=== PATIENT | female | born 1970 | race Caucasian/White ===

== ENCOUNTER → 2016-11-12 | Outpatient (CLI) | payer BC, OTHER ==
--- NOTE | 2016-11-12 12:08 | WWHP ---
[facility] - HISTORY AND PHYSICAL DATE OF SERVICE: 11/12/2016 CHIEF COMPLAINT: The patient is here for her routine gynecologic exam and mammogram. HPI: This is a 46-year-old, G3, P3 with an LMP of 11/05/2016. Her is status post vasectomy. She states her periods have gotten more consistently heavy. Periods are still regular every month. They are lasting 7 to 10 days with 4 days of very heavy flow. On the very heavy days, she has to change her protection up to every 20 minutes. Occasionally, she has found herself having to push out the blood and clots. She does not have any significant problems with cramping or pain with the periods. Her LMP was more normal but the periods prior to that were consistently heavy and long. She did not try the meclofenamate sodium which was prescribed to her in 2015. PAST MEDICAL HISTORY: Migraine headaches. MEDICATIONS: None. ALLERGIES: No known drug allergies. PAST SURGICAL HISTORY: section in the past. 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 She has no history of STDs. SOCIAL HISTORY: She denies tobacco and drug use and has 0 to 1 alcoholic drink per week. 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 FAMILY HISTORY: Unchanged from the 2015 H&P. REVIEW OF SYSTEMS: She has gained about 11 pounds over the last 2 years. She denies respiratory, cardiac or GI problems. PHYSICAL EXAM: Blood pressure 133/72, height 5 feet 2 inches, weight 157 pounds, temperature 98.7, pulse 65. This is a well-developed, well-nourished, white female, who is alert and oriented x3, in no acute distress. HEENT is within normal limits. NECK: Supple without mass or thyromegaly. CHEST AND LUNGS: Clear to auscultation. HEART: Regular rate and rhythm. Breasts are without mass or discharge. Axillary exam is negative for adenopathy. BACK: Negative for CVA tenderness. ABDOMEN: There is a small abdominal wall hernia approximately 5 cm superior to the umbilicus. She states she has had this hernia in the abdominal wall since her last . It does bulge slightly with Valsalva and measures approximately 3 x 4 cm. There is no notable finding without Valsalva. There is no erythema and this is nontender. There are no other palpable abdominal masses or tenderness. PELVIC EXAM: Normal external genitalia. Cervix and vagina appear normal. There is a scant amount of old blood in the back of the vagina with no unusual discharge. There is no cervical motion tenderness. There is no evidence of prolapse. The uterus is mid position, nongravid size and nontender. There are no palpable adnexal masses or tenderness. Rectal exam is negative for mass or tenderness and is negative for occult blood. EXTREMITIES: Nontender. IMPRESSION: 1. A 46-year-old female, whose is status post vasectomy with normal gynecologic exam. 2. Worsening menorrhagia. 3. Asymptomatic small abdominal wall hernia. PLAN: 1. Pap smear was performed. 2. Self breast examination was discussed. 3. Mammogram will be done today. 4. Pelvic ultrasound will be scheduled. 5. Lab studies will include CBC, comprehensive Chem panel, and cholesterol. 6. We have discussed her umbilical wall hernia and at this time I believe conservative management is adequate. We have discussed negative Valsalva exercises if she is noticing a bulge at certain times. 7. Trial of meclofenamate sodium 100 mg t.i.d. p.r.n. for heavy menstrual flow up to 6 days per cycle. She will keep a menstrual calendar. If she is not noticing significant improvement within 3 months, she will call and we will consider referral for endometrial ablation. 8. She will return in 1 year. MMPARKERL / LUARIEN: [id number] /
[2016-11-12 12:32] LABS: ALT 50 U/L (9-52); AST 36 U/L (14-36); Alkaline Phosphatase 63 U/L (38-126); Anion Gap 9 mmol/L; Blood Urea Nitrogen 14 mg/dL (7-17); Calcium 9.1 mg/dL (8.4-10.2); Carbon Dioxide 24 mmol/L (22-30); Chloride 108 mmol/L (98-107); Cholesterol 222 mg/dL (<200); Glucose 81 mg/dL (74-99); Non-African American GFR(MDRD) >60 (>60 ml/min/1.73 sqM); Potassium 4.4 mmol/L (3.5-5.1); Sodium 141 mmol/L (137-145); Total Bilirubin 0.3 mg/dL (0.2-1.3); Total Protein 7.5 g/dL (6.3-8.2)
[2016-11-12 12:36] LABS: CH 30.7; CHCM 35.2; HCT 38.4 % (34.0-46.0); HDW 2.59; HGB 13.1 gm/dL (11.4-16.0); MCH 29.9 pg (25.0-35.0); MCHC 34.1 g/dL (31.0-37.0); MCV 87.6 fL (80.0-100.0); Mean Platelet Volume 7.5; RBC 4.38 m/uL (3.80-5.40); RDW 13.9 % (11.5-15.5); WBC 5.9 k/uL (3.8-10.6)
--- NOTE | 2016-11-14 07:05 | MM ---
Reason for exam: screening (asymptomatic). Last mammogram was performed 2 years and 8 months ago. History: Family history of breast cancer in grandmother. Physical Findings: A clinical breast exam by your physician is recommended on an annual basis and results should be correlated with mammographic findings. MG Screening Mammo w CAD Bilateral CC and MLO view(s) were taken. Prior study comparison: March 22, 2014, bilateral MG screening mammo w CAD. July 02, 2007, bilateral digital screening mammogram. The breast tissue is heterogeneously dense. This may lower the sensitivity of mammography. There is no discrete abnormality. ASSESSMENT: Negative, BI-RAD 1 RECOMMENDATION: Routine screening mammogram of both breasts in 1 year.
== END ==
LOC: WWCWWP 10:22
PROVIDERS: ATTEND Obstetrics & Gynecology
DX: Z12.31 Encounter for screening mammogram for malignant neoplasm of breast (principal); N92.0 Excessive and frequent menstruation with regular cycle; Z00.00 Encounter for general adult medical examination without abnormal findings
CPT/HCPCS: 80053; 82465; 85027; G0202

== ENCOUNTER → 2016-11-21 | Outpatient (CLI) | payer BC ==
--- NOTE | 2016-11-21 09:23 | US ---
EXAMINATION TYPE: US pelvis complete transvag DATE OF EXAM: 11/21/2016 COMPARISON: NONE CLINICAL HISTORY: N92.0 Menorrhagia. TECHNIQUE: Transvaginal (TV) and Transabdominal (TA) Date of LMP: 11/05/2016 EXAM MEASUREMENTS: Uterus: 10.7 x 4.2 x 4.5 cm Endometrial Stripe: 1.3 cm Right Ovary: 2.0 x 1.4 x 2.6 cm Left Ovary: 1.5 x 1.4 x 1.6 cm 1. Uterus: Anteverted Enlarged and heterogeneous. Hypoechoic area visualized measuring 2.3 x 1.5 x 1.9 cm, possible fibroid 2. Endometrium: wnl 3. Right Ovary: wnl 4. Left Ovary: wnl Spectral, color and waveform doppler imaging shows good arterial and venous flow within the ovaries ; there is no evidence for ovarian torsion. 5. Bilateral Adnexa: wnl 6. Posterior cul-de-sac: wnl Urinary bladder is sonolucent. Posterior wall is normal. IMPRESSION: 1. Uterine fibroid
== END | disposition home or self-care (01) ==
LOC: RADUSWWP 08:45
PROVIDERS: ATTEND Obstetrics & Gynecology
DX: D25.9 Leiomyoma of uterus, unspecified (principal)
CPT/HCPCS: 76830; 76856

== ENCOUNTER → 2021-02-08 | Outpatient (CLI) | payer OTHER ==
[~2021-02-08] MED LIST: SODIUM CHLORIDE 0.9% 50 ML IVPB ONE; SODIUM CHLORIDE 0.9% 500 ML 500 ML in EMPTY BAG 1 BAG IV PRN; SOTROVIMAB (EUA) 500 MG in SODIUM CHLORIDE 0.9% 100 ML IVPB ONE
[2021-02-08 08:36] VITALS: TEMP 97.8
[2021-02-08 09:29] VITALS: BP 133/72; PULSE 70; RESP 18
== END ==
LOC: PROCWHC3 07:46
PROVIDERS: ATTEND Nurse Practitioner Family
DX: U07.1 COVID-19 (principal); E66.9 Obesity, unspecified; Z68.27 Body mass index [BMI] 27.0-27.9, adult
CPT/HCPCS: 96360; Q0247; M0247

== ENCOUNTER → 2021-05-24 | Outpatient (CLI) | payer OTHER ==
--- NOTE | 2021-05-28 13:54 | MM ---
Reason for exam: screening (asymptomatic). Last mammogram was performed 4 years and 6 months ago. History: Patient has history of other cancer at age 51. Family history of breast cancer in grandmother. Physical Findings: A clinical breast exam by your physician is recommended on an annual basis and results should be correlated with mammographic findings. MG 3D Screening Mammo W/Cad Bilateral CC and MLO view(s) were taken. Prior study comparison: November 12, 2016, bilateral MG screening mammo w CAD. March 22, 2014, bilateral MG screening mammo w CAD. The breast tissue is heterogeneously dense. This may lower the sensitivity of mammography. No significant changes when compared with prior studies. ASSESSMENT: Negative, BI-RAD 1 RECOMMENDATION: Routine screening mammogram of both breasts in 1 year. Patient should continue monthly self breast exams. A negative report should not preclude additional follow up of suspicious palpable abnormalities.
== END | disposition home or self-care (01) ==
LOC: RADMAMWWP 15:31
PROVIDERS: ATTEND Family Medicine
DX: Z12.31 Encounter for screening mammogram for malignant neoplasm of breast (principal); Z80.3 Family history of malignant neoplasm of breast
CPT/HCPCS: 77063; 77067